=== PATIENT | female | born 1990 | race Caucasian/White ===

== ENCOUNTER 2018-02-20 19:32 | Emergency (ER) | payer OTHER ==
--- OUTSIDE RECORDS SUMMARY | 2018-02-20 19:34 | XMS REPORT ---
:1990 Author Organization eClinicalWorks Care Team Providers Name Role Phone Eduardo Vee Provider Role Unavailable Allergies, Adverse Reactions, Alerts Substance Reaction Event Type ibuprofen Info Not Available Non Drug Allergy sudafed Info Not Available Non Drug Allergy Problems Problem Type Condition Code Onset Dates Condition Status Assessment Drug-seeking behavior Z76.5 Active Problem Encounter for initial prescription Z30.011 Active of contraceptive pills Problem Nexplanon removal Z30.46 Active Problem Dysmenorrhea N94.6 Active Assessment Dysmenorrhea N94.6 Active Assessment Encounter for initial prescription Z30.011 Active of contraceptive pills Problem Drug-seeking behavior Z76.5 Active Assessment Nexplanon removal Z30.46 Active Medications Medication Code Code Instructions Start End Date Status Dosage System Date Pristiq [facility] [id number] 50 MG Orally Active 1 tablet Once a day Voltaren-XR NDC 0 Active not defined Sprintec 28 [facility] [id number] 0.25-35 MG-MCG August 23, Active 1 tablet Orally Once a 2018 day Nexplanon [facility] [id number] 68 MG Active not defined Subcutaneous Results No Known Results Summary Purpose eClinicalWorks Submission
[2018-02-20 20:05] LABS: Absolute Lymphocytes (CBC) 1.8 K/uL (0.7-4.9); Absolute Monocytes 0.8 K/uL (0.1-1.3); Absolute Neutrophil 5.3 K/uL (1.8-8.0); Basophils % 0.8 % (0-1.3); Hematocrit 35.8 % (36.0-45.0); MCH 29.8 pg (27.0-35.0); MCV 87.4 fL (80-100); Monocytes % 9.8 % (3.3-12.3)
[2018-02-20 20:06] LABS: Protime INR 1.19
[2018-02-20 20:39] LABS: ALT/SGPT 24 U/L (12-78); AST/SGOT 16 U/L (15-37); Albumin 4.1 g/dL (3.4-5.0); Alkaline Phosphatase 82 U/L (45-117); BUN Blood Urea Nitrogen 8 mg/dL (7-18); Bicarbonate 21 mmol/L (21-32); Bilirubin Direct 0.2 mg/dL (0-0.2); Bilirubin Total 0.9 mg/dL (0.2-1.0); Glucose Level 96 mg/dL (74-106); Potassium 3.1 mmol/L (3.5-5.1); Protein, Total 7.3 g/dL (6.4-8.2); Sodium Level 140 mmol/L (136-145)
[2018-02-20] MEDS ORDERED: NA CHLORIDE 0.9% 1,000 ML ONE (22:32)
[2018-02-20 22:55] LABS: Barbiturates NEGATIVE (NEGATIVE); Benzodiazepines NEGATIVE (NEGATIVE); Cocaine NEGATIVE (NEGATIVE); METHAMPHETAM POSITIVE (NEGATIVE); Methadone NEGATIVE (NEGATIVE); Opiates NEGATIVE (NEGATIVE); Phencyclidine NEGATIVE (NEGATIVE); THC Cannibis NEGATIVE (NEGATIVE)
[2018-02-20] MEDS ORDERED: LORazepam 2 MG/ML VIAL ONE (23:28)
[2018-02-21 00:25] LABS: Urine Blood 3+ (NEG); Urine Glucose NEGATIVE (NEG); Urine Protein 1+ (NEG); Urine Specific Gravity 1.025 (1.005-1.030); Urine pH 5.5 (5.0-7.0)
--- NOTE | 2018-02-21 11:33 | EDPHYS ---
Physician Documentation [facility] Name: Harriet Stephenson Age: 27 yrs Sex: Female : 1990 Arrival Date: 02/20/2018 Time: 19:37 Bed 18 Private MD: ED Physician Pancho Miguel HPI: 02/20 19:49 This 27 yrs old Female presents to ER via Law Enforcement with complaints of ps1 Psych Problem. 19:49 patient attest to taking more of her ADHD medications than prescribed. She attests to ps1 audio and visual hallucinations however is providing adequate history and is oriented. She additionally takes phentermine for weight loss. Symptom onset over last 24 hours. SO called PD and [facility] brought patient in for evaluation. . 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 - Social history:: Smoking status: . - Ebola Screening: : Patient denies travel to an Ebola-affected area in the 21 days before illness onset. ROS: 02/20 19:49 Constitutional: Negative for fever, chills, and weight loss, Eyes: Negative for injury, ps1 pain, redness, and discharge, Cardiovascular: Negative for chest pain, palpitations, and edema, Respiratory: Negative for shortness of breath, cough, wheezing, and pleuritic chest pain, Abdomen/GI: Negative for abdominal pain, nausea, vomiting, diarrhea, and constipation, MS/Extremity: Negative for injury and deformity, Skin: Negative for injury, rash, and discoloration, Neuro: Negative for headache, weakness, numbness, tingling, and seizure. Psych: Positive for drug dependence, auditory hallucinations, visual hallucinations. Exam: 19:49 Constitutional: This is a well developed, well nourished patient who is awake, alert, ps1 and in no acute distress. Head/Face: Normocephalic, atraumatic. 19:49 Chest/axilla: Normal chest wall appearance and motion. Nontender with no deformity. No lesions are appreciated. 19:49 Respiratory: Lungs have equal breath sounds bilaterally, clear to auscultation and percussion. No rales, rhonchi or wheezes noted. No increased work of breathing, no retractions or nasal flaring. Abdomen/GI: Soft, non-tender, with normal bowel sounds. No distension or tympany. No guarding or rebound. No evidence of tenderness throughout. Back: No spinal tenderness. No costovertebral tenderness. Full range of motion. MS/ Extremity: Pulses equal, no cyanosis. Neurovascular intact. Full, normal range of motion. Neuro: Awake and alert, GCS 15, oriented to person, place, time, and situation. Cranial nerves II-XII grossly intact. Sensory grossly intact. 19:49 Eyes: Pupils: right pupil is approximately 6 mm(s), left pupil is approximately 6 mm(s), Extraocular movements: no acute changes, Conjunctiva: normal, Corneas: are normal. 19:49 Cardiovascular: Rate: tachycardic, Rhythm: regular, Pulses: no pulse deficits are appreciated. 19:49 Psych: Behavior/mood is pleasant, cooperative, Affect is animated, Oriented to person, place, time, Patient has no thoughts/intents to harm self or others. Judgement / Insight is normal. Memory is normal. Delusions/hallucinations are present and described as seeing people that aren't there. Vital Signs: 19:43 BP 146 / 99; Pulse 95; Resp 17; Temp 97.9; Pulse Ox 100% ; Weight 91.63 kg; Height 5 tl1 ft. 4 in. (162.56 cm); Pain 0/10; 20:58 BP 124 / 94; Pulse 88; Resp 18; Pulse Ox 100% on R/A; oe 21:58 BP 125 / 82; Pulse 81; Resp 18; Pulse Ox 100% on R/A; oe 23:12 BP 128 / 87; Pulse 72; Resp 17; Pulse Ox 100% ; Pain 0/10; tl1 02/21 01:38 BP 104 / 63; Pulse 82; Resp 15; Pulse Ox 100% ; Pain 0/10; tl1 02:33 BP 108 / 62; Pulse 80; Resp 15; Pulse Ox 99% on R/A; Pain 0/10; tl1 04:07 BP 103 / 56; Pulse 82; Resp 17; Pulse Ox 98% on R/A; Pain 0/10; tl1 06:28 BP 98 / 63; Pulse 81; Resp 17; Pulse Ox 99% on R/A; Pain 0/10; tl1 11:38 BP 109 / 58; Pulse 88; Resp 17; Pulse Ox 99% on R/A; tw2 02/20 19:43 Body Mass Index 34.67 (91.63 kg, 162.56 cm) tl1 MDM: 02/20 19:49 Patient medically screened. ps1 02/21 11:30 Data reviewed: vital signs, nurses notes. Data interpreted: Pulse oximetry: on room air kb is 100 %. Interpretation: normal. Counseling: I had a detailed discussion with the patient and/or guardian regarding: the historical points, exam findings, and any diagnostic results supporting the discharge/admit diagnosis, lab results, the need for outpatient follow up, a family practitioner, to return to the emergency department if symptoms worsen or persist or if there are any questions or concerns that arise at home. ED course: Pt woke up and states she is feeling better. Reports she had hallucinations yesterday so she came in, but is no longer having hallucinations. Denies homicidal or suicidal ideations. States she wants to go home and is comfortable going home. Educated to return for any concerns including return of symptoms. 02/20 19:48 Order name: Acetaminophen; Complete Time: 20:59 ps1 02/20 19:48 Order name: CBC with Diff; Complete Time: 20:21 ps1 02/20 19:48 Order name: ETOH Level; Complete Time: 20:59 ps1 02/20 19:48 Order name: Hepatic Function; Complete Time: 20:59 ps1 02/20 19:48 Order name: PT-INR; Complete Time: 20:21 ps1 02/20 19:48 Order name: Salicylate; Complete Time: 20:59 ps1 02/20 19:48 Order name: Urine Drug Screen; Complete Time: 23:04 ps1 02/20 19:48 Order name: EKG; Complete Time: 19:49 ps1 02/20 19:48 Order name: CMP; Complete Time: 20:59 ps1 02/20 22:29 Order name: Urine Dipstick--Ancillary (enter results); Complete Time: 01:11 ct 02/20 22:29 Order name: Urine --Ancillary (enter results); Complete Time: 01:11 mt 02/21 07:22 Order name: Diet Finger Food; Complete Time: 07:23 ph 02/20 19:48 Order name: EKG - Nurse/Tech; Complete Time: 20:26 ps1 02/20 19:48 Order name: IV Saline Lock; Complete Time: 20:26 ps1 02/20 19:48 Order name: Labs collected and sent; Complete Time: 20:29 ps1 02/20 19:48 Order name: Urine Dipstick-Ancillary (obtain specimen); Complete Time: 22:29 ps1 Administered Medications: 02/20 22:28 Drug: NS 0.9% 1000 ml Route: IV; Rate: 1 bolus; Site: right antecubital; tl1 02/21 00:00 Follow up: IV Status: Completed infusion tl1 02/20 23:24 Drug: Ativan 2 mg Route: IVP; Infused Over: 3 mins; Site: right antecubital; tl1 02/21 06:29 Follow up: Response: No adverse reaction; Marked relief of symptoms; Anxiety decreased tl1 Disposition: 02/21/18 11:32 Discharged to Home. Impression: Hallucinations, unspecified - resolved. - Condition is Stable. - Medication Reconciliation Form, Thank You Letter, Antibiotic Education, Prescription Opioid Use form. - Follow up: Emergency Department; When: As needed; Reason: Worsening of condition. Follow up: Private Physician; When: 2 - 3 days; Reason: Recheck today's complaints, Continuance of care, Re-evaluation by your physician. Addendum: 02/26/2018 09:49 Co-signature as Attending Physician, Pancho Miguel MD available for consultation at p s1 all times . Signatures: Dispatcher [employer] EDLA Madeline Gutierrez, AN-C [employer] MINER-Analy Askew RN RN tl1 Carlita Henley RN RN tw2 Pancho Miguel MD MD ps1 Corrections: (The following items were deleted from the chart) 02/21 11:39 11:32 02/21/2018 11:32 Discharged to Home. Impression: Hallucinations, unspecified - tw2 resolved. Condition is Stable. Forms are Medication Reconciliation Form, Thank You Letter, Antibiotic Education, Prescription Opioid Use. Follow up: Emergency Department; When: As needed; Reason: Worsening of condition. Follow up: Private Physician; When: 2 - 3 days; Reason: Recheck today's complaints, Continuance of care, Re-evaluation by your physician. kb
--- NOTE | 2018-02-21 11:33 | ER ---
Nurse's Notes [facility] Name: Harriet Stephenson Age: 27 yrs Sex: Female : 1990 Arrival Date: 02/20/2018 Time: 19:37 Bed 18 Private MD: Diagnosis: Hallucinations, unspecified-resolved Presentation: 02/20 19:38 Presenting complaint: Patient states: I am seeing people thru windows and hearing tl1 voices and talking back to the voices. Transition of care: patient was not received from another setting of care. Onset of symptoms is unknown. Risk Assessment: Do you want to hurt yourself or someone else? Patient reports no desire to harm self or others. Initial Sepsis Screen: Does the patient meet any 2 criteria? No. Patient's initial sepsis screen is negative. Does the patient have a suspected source of infection? No. Patient's initial sepsis screen is negative. Care prior to arrival: None. 19:38 Method Of Arrival: Law Enforcement: Mental Health tl1 19:38 Acuity: ZAIRA 2 tl1 19:41 Presenting complaint: Officer Ming from the [facility] office was told tl1 by the family that she started taking generic adderall 3 days ago and has been experiencing hallucinations, voices and has been talking back to the voices. denies any self harm or desire to harm others. 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 - Social history:: Smoking status: . - Ebola Screening: : Patient denies travel to an Ebola-affected area in the 21 days before illness onset. Screenin/24 20:44 Abuse screen: Denies threats or abuse. Denies injuries from another. Nutritional tl1 screening: No deficits noted. Tuberculosis screening: No symptoms or risk factors identified. Fall Risk None identified. Assessment: 20:00 General: Appears in no apparent distress. Behavior is cooperative, anxious. General: tl1 Behavior is pt reports hallucinations and hearing voices. Pain: Denies pain. Neuro: Level of Consciousness is awake, alert, obeys commands, Oriented to person, place, time, situation. Cardiovascular: Denies chest pain. Respiratory: Airway is patent Trachea midline Respiratory effort is even, unlabored, Breath sounds are clear bilaterally. GI: Abdomen is non-distended, Bowel sounds present X 4 quads. Abd is soft and non tender X 4 quads. : No signs and/or symptoms were reported regarding the genitourinary system. EENT: No signs and/or symptoms were reported regarding the EENT system. Derm: No signs and/or symptoms reported regarding the dermatologic system. 02/21 02:29 Reassessment: Patient and/or family updated on plan of care and expected duration. Pain tl1 level reassessed. Patient is alert, oriented x 3, equal unlabored respirations, skin warm/dry/pink. Patient states symptoms have improved. 07:00 Reassessment: Patient appears in no apparent distress at this time. Patient and/or tw2 family updated on plan of care and expected duration. Pain level reassessed. Patient is alert, oriented x 3, equal unlabored respirations, skin warm/dry/pink. pt appears to be sleeping at this time. 08:06 Reassessment: Patient appears in no apparent distress at this time. Patient and/or tw2 family updated on plan of care and expected duration. Pain level reassessed. Patient is alert, oriented x 3, equal unlabored respirations, skin warm/dry/pink. pt appears to be sleeping at this time. 09:05 Reassessment: Patient appears in no apparent distress at this time. Patient and/or tw2 family updated on plan of care and expected duration. Pain level reassessed. Patient is alert, oriented x 3, equal unlabored respirations, skin warm/dry/pink. pt appears to be sleeping at this time. 10:05 Reassessment: Patient appears in no apparent distress at this time. Patient and/or tw2 family updated on plan of care and expected duration. Pain level reassessed. Patient is alert, oriented x 3, equal unlabored respirations, skin warm/dry/pink. pt appears to be sleeping at this time. 11:24 Reassessment: Patient and/or family updated on plan of care and expected duration. Pain tw2 level reassessed. Patient is alert, oriented x 3, equal unlabored respirations, skin warm/dry/pink. pt is awake at this time, sitting upright in bed, pt given dietary tray at this time, provider notified. pt a\T\o4, nad. 11:39 Reassessment: Patient appears in no apparent distress at this time. Patient and/or tw2 family updated on plan of care and expected duration. Pain level reassessed. Patient is alert, oriented x 3, equal unlabored respirations, skin warm/dry/pink. Psych: 07:08 Subjective: Hallucinations are visual. Objective:. Interventions: Patient placed in [facility] gown. Suicide Risk Assessment: Sad Person Scale: Sex of patient: Female: Score 0 points. Age of patient: Score 1 point if patient 15-34. Depression: Score 1 point if signs of depression are present. Rational Thinking: Score 1 point if patient is lacking rational thinking. Safety Checks: Personal items have not been removed. Door is open. No visitors are present at this time. Pt denies substance abuse. Commitment: Patient will be a voluntary commitment. Vital Signs: 02/20 19:43 BP 146 / 99; Pulse 95; Resp 17; Temp 97.9; Pulse Ox 100% ; Weight 91.63 kg; Height 5 tl1 ft. 4 in. (162.56 cm); Pain 0/10; 20:58 BP 124 / 94; Pulse 88; Resp 18; Pulse Ox 100% on R/A; oe 21:58 BP 125 / 82; Pulse 81; Resp 18; Pulse Ox 100% on R/A; oe 23:12 BP 128 / 87; Pulse 72; Resp 17; Pulse Ox 100% ; Pain 0/10; tl1 02/21 01:38 BP 104 / 63; Pulse 82; Resp 15; Pulse Ox 100% ; Pain 0/10; tl1 02:33 BP 108 / 62; Pulse 80; Resp 15; Pulse Ox 99% on R/A; Pain 0/10; tl1 04:07 BP 103 / 56; Pulse 82; Resp 17; Pulse Ox 98% on R/A; Pain 0/10; tl1 06:28 BP 98 / 63; Pulse 81; Resp 17; Pulse Ox 99% on R/A; Pain 0/10; tl1 11:38 BP 109 / 58; Pulse 88; Resp 17; Pulse Ox 99% on R/A; tw2 02/20 19:43 Body Mass Index 34.67 (91.63 kg, 162.56 cm) tl1 ED Course: 02/20 19:37 Patient arrived in ED. tl1 19:37 Analy Turcios RN is Primary Nurse. tl1 19:39 Pancho Miguel MD is Attending Physician. ps1 19:41 Triage completed. tl1 20:44 No provider procedures requiring assistance completed. Inserted saline lock: 20 gauge tl1 in right antecubital area, using aseptic technique. Blood collected. 20:44 Patient has correct armband on for positive identification. Bed in low position. tl1 02/21 01:25 Resting quietly. Appears to be sleeping. tl1 02:29 Resting quietly. Appears to be sleeping. tl1 06:29 No apparent distress. Resting quietly. Appears to be sleeping. tl1 07:07 Primary Nurse role handed off by Analy Turcios RN tw2 07:07 Carlita Henley RN is Primary Nurse. tw2 07:09 Arm band placed on. tw2 11:39 IV discontinued, intact, bleeding controlled, No redness/swelling at site. Pressure tw2 dressing applied. Administered Medications: 02/20 22:28 Drug: NS 0.9% 1000 ml Route: IV; Rate: 1 bolus; Site: right antecubital; tl1 02/21 00:00 Follow up: IV Status: Completed infusion tl1 02/20 23:24 Drug: Ativan 2 mg Route: IVP; Infused Over: 3 mins; Site: right antecubital; tl1 02/21 06:29 Follow up: Response: No adverse reaction; Marked relief of symptoms; Anxiety decreased tl1 Outcome: 11:32 Discharge ordered by . kb 11:39 Discharged to home ambulatory. tw2 11:39 Condition: stable 11:39 Discharge instructions given to patient, Instructed on discharge instructions, follow up and referral plans. Demonstrated understanding of instructions, follow-up care. 11:39 Patient left the ED. tw2 Signatures: Madeline Gutierrez, NANOTECHNOLOGY ENGINEERING TECHNICIAN-C NANOTECHNOLOGY ENGINEERING TECHNICIAN-Ckb Analy Turcios RN RN tl1 Carlita Henley RN RN tw2 Singleton, Thor oe Miguel, Pancho, MD MD ps1
[2018-02-21 13:44] VITALS: TEMP 97.9
[2018-02-21 13:54] VITALS: O2SAT 99
[2018-02-21 13:56] VITALS: BP 109/58
--- NOTE | 2018-02-22 07:33 | EKG ---
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
== END 2018-02-21 11:39 | disposition home or self-care (01) ==
LOC: ER 19:32
DX: R44.1 Visual hallucinations (principal); F32.9 Major depressive disorder, single episode, unspecified; F90.9 Attention-deficit hyperactivity disorder, unspecified type; Z88.6 Allergy status to analgesic agent; Z88.8 Allergy status to other drugs, medicaments and biological substances
CPT/HCPCS: 36415; 80053; 80076; 80307; 80320; 80329; 81003; 81025; 85025; 85610; 93005; 96361; 96374; 99284; J7030

== ENCOUNTER 2018-04-29 21:58 | Emergency (ER) | payer OTHER, SELFPAY ==
--- OUTSIDE RECORDS SUMMARY | 2018-04-29 22:00 | XMS REPORT ---
[...] End Date Status Dosage System Date Pristiq [facility] [id number] 50 MG Orally Active 1 tablet Once a day Voltaren-XR NDC 0 Active not defined Sprintec [address] [facility] [id number] 0.25-35 MG-MCG August 23, Active 1 tablet Orally Once a [address] [facility] [id number] 68 MG Active not defined Subcutaneous Results No Known Results Summary Purpose eClinicalWorks Submission
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
[2018-04-29 22:32] VITALS: BP 110/67; TEMP 98.3; O2SAT 96
== END 2018-04-29 22:20 | disposition left against medical advice (07) ==
LOC: ER 21:58
DX: S00.83XA Contusion of other part of head, initial encounter (principal); T51.0X1A Toxic effect of ethanol, accidental (unintentional), initial encounter; Y04.2XXA Assault by strike against or bumped into by another person, initial encounter; Y93.89 Activity, other specified; Y92.9 Unspecified place or not applicable; Z88.6 Allergy status to analgesic agent; Z88.8 Allergy status to other drugs, medicaments and biological substances; F90.9 Attention-deficit hyperactivity disorder, unspecified type; F32.9 Major depressive disorder, single episode, unspecified; F17.210 Nicotine dependence, cigarettes, uncomplicated
CPT/HCPCS: 99283